=== PATIENT | male | born 1970 | race Two or more races ===

== ENCOUNTER 2017-03-30 08:15 | Outpatient (CLI) | END 2017-03-30 08:16 | disposition home or self-care (01) | LOC: LAB 08:15 | PROVIDERS: ATTEND Family Medicine | DX: Z53.9 Procedure and treatment not carried out, unspecified reason (principal) | CPT/HCPCS: 36415; 80053; 80061; 81001; 84270; 84403; 85025; G0103 ==

== ENCOUNTER 2018-02-25 11:41 | Outpatient (CLI) | payer OTHER ==
--- NOTE | 2018-02-25 13:45 | RAD ---
LEFT HEEL 2 VIEWS: Date: 02/25/18 HISTORY: Left inner heel pain. FINDINGS/IMPRESSION: The left calcaneus appears intact. No fracture or bony destruction is seen. POS: [id number]
== END 2018-02-25 11:42 | disposition home or self-care (01) ==
LOC: BICRAD 11:41
PROVIDERS: ATTEND Family Medicine
DX: M79.672 Pain in left foot (principal)

== ENCOUNTER → 2021-01-06 | Day surgery (SDC) | payer OTHER ==
[2021-01-05 11:01] VITALS: BMI 31.0
[~2021-01-06] MED LIST: Bupivacaine PF 0.5% 30 ML VIAL ONE; Fentanyl 100 MCG/2 ML VIAL ONE; Lidocaine 1% PF 5 ML VIAL ONE; Lidocaine 2% w/Epinephrine 1:200K 20 ML VIAL ONE; Ondansetron PF 4 MG/2 ML Vial ONE; PROPOFOL 20 ML ONE; PROPOFOL 200 MG/20 ML VIAL ONE
== END ==
LOC: SDC 05:50
PROVIDERS: ATTEND Orthopaedic Surgery
PROC: 0SBD4ZZ Excision of Left Knee Joint, Percutaneous Endoscopic Approach (ICD-10-PCS; principal; 2021-01-06)
DX: M23.222 Derangement of posterior horn of medial meniscus due to old tear or injury, left knee (principal); M94.262 Chondromalacia, left knee; G47.30 Sleep apnea, unspecified; Z79.899 Other long term (current) drug therapy
CPT/HCPCS: J0690; J2405; J2704; J3010; S0020